=== PATIENT | male | born 1960 | race Caucasian/White ===

== ENCOUNTER 2021-01-28 07:25 | Day surgery (SDC) | payer BC ==
[2021-01-27 11:55] LABS: Absolute Lymphocytes (CBC) 2.2 K/uL (0.7-4.9); Basophils % 1.1 % (0-1.3); Hematocrit 46.3 % (39.6-49.0); Lymphocytes % 31.1 % (15.3-44.8); MPV 7.9 fL (7.6-11.3); Potassium 4.4 mmol/L (3.5-5.1); RBC Red Blood Cell Count 5.07 M/uL (4.33-5.43)
--- NOTE | 2021-01-27 12:04 | RAD REPORT ---
EXAM DESCRIPTION: RAD - Chest Pa And Lat (2 Views) - 01/27/2021 11:27 am CLINICAL HISTORY: preop, patient pending umbilical hernia repair COMPARISON: August 2012 TECHNIQUE: Frontal and lateral views of the chest were obtained. FINDINGS: The lungs are clear of an acute infiltrate, failure or volume overload finding. No suspici ous mass. Scarring in the mid right lung field has progressed since 2011. Interval change is minimal. No mass density identified. Heart size is normal and central vasculature is within normal limits. No pleural effusion or pneumothorax seen. No acute bony finding noted. No aortic abnormality. IMPRESSION: No acute cardiopulmonary process. Right midlung field scarring changes are very minimally progressive from 2011.
--- NOTE | 2021-01-27 12:13 | EKG ---
Test Date: 2021-01-27 Test Time: 10:27:25 Accounts Receivable Associate: TG MEASUREMENT RESULTS: Intervals: Rate: 55 OR: 230 QRSD: 94 QT: 440 QTc: 420 [place]: P: 31 OR: 230 QRS: 30 T: 28 INTERPRETIVE STATEMENTS: Sinus bradycardia with sinus arrhythmia with 1st degree AV block Otherwise normal ECG Compared to ECG 01/08/2016 10:13:44 First degree AV block now present Electronically Signed On 01-27-21 12:13:11 CDT by Rex Call
[2021-01-28] MEDS ORDERED: CEFAZOLIN/SWI 1gm 1 GM/10 ML SYR ONE (08:10)
[2021-01-28] MEDS ORDERED: Ringers Lactate 1,000 ML IV ONE ×2 (08:10→09:55)
[2021-01-28] MEDS ORDERED: FENTANYL CITR 100 MCG/2 ML ONE (08:26)
[2021-01-28] MEDS ORDERED: MIDAZOLAM HCL 2 MG/2 ML INJ ONE (08:26)
[2021-01-28] MEDS ORDERED: propofoL 200 MG/20 ML VIAL IV ONE (08:26)
[2021-01-28] MEDS ORDERED: dexAMETHasone 10 MG/ML VIAL ONE (08:26)
[2021-01-28] MEDS ORDERED: KETOROLAC 30 MG/ML INJ ONE (08:26)
[2021-01-28] MEDS ORDERED: ONDANSETRON 4 MG/2 ML VIAL ONE (08:27)
[2021-01-28] MEDS ORDERED: LIDOCAINE 2% MPF 5 ML VIAL ONE (08:27)
[2021-01-28] MEDS ORDERED: CELECOXIB 100 MG CAPSULE ONE (08:31)
[2021-01-28] MEDS ORDERED: ACETAMINOPHEN 500 MG TAB ONE (08:31)
[2021-01-28] MEDS ORDERED: ROCURONIUM 50 MG/5 ML VIAL IV ONE (09:32)
[2021-01-28] MEDS ORDERED: GLYCOPYRROLATE 0.2 MG/ML SYR ONE (09:48)
[2021-01-28] MEDS ORDERED: NEOSTIGMINE 1 MG/ML -5 ML ONE (09:49)
--- NOTE | 2021-01-28 10:04 | P.BOP ---
Preoperative diagnosis: incarcerated umbilical hernia Postoperative diagnosis: same Primary procedure: Open repair of incarcerated umbilical hernia [employer]working Supervisor: ELISEO WORKMAN ([employer]) Estimated blood loss: <10cc Specimen: hernia sac Findings: as above Anesthesia: General Complications: None Transferred to: Recovery Room Condition: Good
[2021-01-28 11:28] VITALS: BP 139/70; TEMP 96.4; O2SAT 100
--- NOTE | 2021-01-28 11:50 | OP ---
Date of Procedure: 01/28/2021 Surgeon: Raymond Dalton MD Forest Manager: Hanny Joshua. Preoperative Diagnosis: Incarcerated umbilical hernia. Postoperative Diagnosis: Incarcerated umbilical hernia. Procedure Performed: Open repair of incarcerated umbilical hernia. Estimated Blood Loss: Less than 10 mL. Specimen: Hernia sac. Anesthesia: General plus local. Indication: This is the case of a 60-year-old patient, who comes to us with above diagnosis. Fully explained the benefits, alternatives, and risks of repair may include mesh, which include, but not li mited to infection, bleeding, damage to adjacent structures, anesthesia complication, recurrence, RI, and even . He also understands this may not relieve any symptoms. He might need more than one surgical intervention. He understood, signed a consent. Procedure In Detail: The patient was brought to the operating room, placed in supine position. Anes thesia was done without complication. A time-out was called. Abdomen was prepped and draped in a st erile fashion. Local anesthesia was applied followed by sharp incision of the skin in the supraumbil ical region. The incision was carried down to the fascia. We noticed the hernia sac was opened. Th e incarcerated omentum was visualized. Some adhesions to the hernia sac were removed. The omentum w as reduced back into the abdominal cavity after fully inspected making sure there was no bleeding and also making sure that it is viable. Hernia sac was removed. Fascial edges were cleaned. We notice d we can close this and approximate this without significant tension by using #1 Prolene in a figure [id number] fashion multiple times. The defect was closed. The subcutaneous tissue was closed w ith 3-0 chromic and the skin in a subcuticular fashion with Steri-Strips on top. Sponge count and in strument counts were correct. The patient tolerated the procedure well. The patient was sent to [facility] in stable condition. HM/MODL Voice ID: [id number] Report ID: [id number]
--- NOTE | 2021-01-28 11:50 | DS ---
Diagnosis: Incarcerated umbilical hernia. Procedure Performed: Open repair of incarcerated umbilical hernia. Disposition: Home. Discharge Instructions: Activity as tolerated. No heavy lifting. Plan: Follow up in my office in 1 week. Call for appointment at [phone]. Keep area dry for 48 carlos rs, then may shower. He will keep Steri-Strip intact. He can also leave the area intact until he se es me again next week. MARISA/GEORGINA Voice ID: [id number] Report ID: [id number]
== END 2021-01-28 11:15 | disposition home or self-care (01) ==
LOC: OR 07:25
PROVIDERS: ATTEND Surgery
PROC: 0WQF0ZZ Repair Abdominal Wall, Open Approach (ICD-10-PCS; principal; 2021-01-28 09:30)
DX: K42.0 Umbilical hernia with obstruction, without gangrene (principal); Z20.822 Contact with and (suspected) exposure to COVID-19
CPT/HCPCS: 93005; 85025; 80048; 36415; 88302; 71046; 49587; U0003; J2704; J2250; J3010; J1100; J2710; J0690; J7120 ×2; J2405; 88304

== ENCOUNTER 2025-01-18 17:20 | Emergency (ER) | payer BC, OTHER ==
--- NOTE | 2025-01-18 18:55 | RAD REPORT ---
EXAMINATION: ONE VIEW CHEST XR CLINICAL INDICATION: COUGH TECHNIQUE: Frontal chest projection is submitted. Examination is limited by patient positioning and t echnique. COMPARISON: 01/27/2021 FINDINGS: Bilateral interstitial prominence seen, nonspecific but can indicate viral infection/bronchitis. No f ocal consolidation typical pneumonia seen. The heart is normal in size. No displaced fractures identified.
[2025-01-18 20:37] LABS: Absolute Basophils 0.1 K/uL (0-0.5); Absolute Eosinophils 0.1 K/uL (0-0.5); Absolute Lymphocytes (CBC) 1.4 K/uL (0.7-4.9); Absolute Neutrophil 12.2 K/uL (1.8-8.0); Basophils % 0.4 % (0-1.3); Eosinophils % 0.5 % (0-4.4); Hematocrit 44.7 % (39.6-49.0); Hemoglobin 15.5 g/dL (13.6-17.9); Lymphocytes % 9.2 % (15.3-44.8); MCH 31.3 pg (27.0-35.0); MCHC 34.7 g/dL (32.0-36.0); MCV 90.3 fL (80-100); MPV 7.5 fL (7.6-11.3); Monocytes % 6.8 % (3.3-12.3); Neutrophils % 83.1 % (41.7-73.7); Nucleated Red Blood Cells % 0.1 % (0-0); Platelets 333 thou/uL (152-406); RBC Red Blood Cell Count 4.95 M/uL (4.33-5.43); Red Cell Distribution Width 13.8 % (12.1-15.2)
[2025-01-18 21:00] LABS: Albumin 3.9 g/dL (3.4-5.0); Anion Gap 8.8 mEq/L (5.0-15.0); Bilirubin Direct 0.3 mg/dL (0-0.2); Bilirubin Total 1.3 mg/dL (0.2-1.0); Globulin 3.9 g/dL (2.3-3.5); Magnesium 2.1 mg/dL (1.6-2.4); Potassium 3.8 mEq/L (3.5-5.1); Protein, Total 7.8 g/dL (6.4-8.2); Troponin High Sensitivity 12.1 pg/mL (<58.9)
[2025-01-18] MEDS ORDERED: KETOROLAC 30 MG/ML INJ ONE (21:25)
[2025-01-18] MEDS ORDERED: ONDANSETRON 4 MG/2 ML VIAL ONE (21:25)
[2025-01-18] MEDS ORDERED: MORPHINE 4 MG/ML SYR ONE (21:25)
[2025-01-19] MEDS ORDERED: ONDANSETRON 4 MG/2 ML VIAL ONE (01:03)
[2025-01-19] MEDS ORDERED: MORPHINE 4 MG/ML SYR ONE (01:03)
--- NOTE | 2025-01-19 02:08 | RAD REPORT ---
EXAM DESCRIPTION: Chest For Pe Angio CLINICAL HISTORY: 64 years Male Chest pain;Cough COMPARISON: None TECHNIQUE: Images were obtained in axial, sagittal, and coronal planes. Intravenous contrast was administered. 3 -D MIP imaging was performed. This exam was performed according to our departmental dose-optimization program which includes use of Automated Exposure Control, adjustment of the mA and/ or kV according to patient size and/or use of iterative reconstruction technique. FINDINGS: No filling defects pulmonary arteries bilaterally. No aortic dissection or dilatation. No right heart strain. No pericardial or pleural effusions bilaterally. No adenopathy. Coronary artery calcification. No lung parenchymal infiltrates or nodules seen. No pneumothorax. Moderately distended gallbladder. No acute osseous abnormality. IMPRESSION: No evidence for pulmonary embolus. No aortic dissection or dilatation. No infiltrates seen. Electronically signed by: Monisha Olson MD 01/19/2025 01:17 AM CDT RP Due to temporary technical issues with the PACS/Feniks reporting system, reports are being noah d by the in-house radiologist without review as a courtesy to ensure prompt reporting the interpreting radiologist is fully responsible for the content of the report. Transcribed Date/Time: 01/19/2025 2:07 AM
[2025-01-19] MEDS ORDERED: HYDROMORPHONE HCL 0.5 MG/0.5 ML INJ ONE (03:41)
--- NOTE | 2025-01-19 04:10 | RAD REPORT ---
PROCEDURE: US ABDOMEN LIMITED INDICATION: Abdominal pain. COMPARISON: CT chest/abdomen/2024. TECHNIQUE: Grayscale, color and spectral Doppler ultrasound of the gallbladder was performed. FINDINGS: Visualized gallbladder is normally distended without stones or sludge. No gallbladder wall thickening or pericholecystic fluid. Patient is premedicated prior to exam. IMPRESSION: Negative gallbladder ultrasound. Electronically signed by: Odilia Armenta MD 01/19/2025 04:05 AM CDT RP Due to temporary technical issues with the PACS/[employer] reporting system, reports are being sign ed by the in-house radiologist without review as a courtesy to ensure prompt reporting the interpreting rad iologist is fully responsible for the content of the report. Transcribed Date/Time: 01/19/2025 4:10 AM
--- NOTE | 2025-01-19 05:34 | ER ---
Nurse's Notes [facility] Name: Fabrice Horn Age: 64 yrs Sex: Male : 1960 Arrival Date: 01/18/2025 Time: 17:20 Bed 16 Private MD: Diagnosis: Leukocytosis, elevated LFTs Presentation: 01/18 18:03 Chief complaint: Cough x 2 weeks, right lateral chest pain and pain with cough since hb this morning. Coronavirus screen: At this time, the client does not indicate any symptoms associated with coronavirus-19. Ebola Screen: No symptoms or risks identified at this time. Initial Sepsis Screen: Does the patient meet any 2 criteria? No. Patient's initial sepsis screen is negative. Does the patient have a suspected source of infection? No. Patient's initial sepsis screen is negative. Risk Assessment: Do you want to hurt yourself or someone else? Patient reports no desire to harm self or others. Onset of symptoms was January 18, 2025. 18:03 Method Of Arrival: Ambulatory 18:03 Acuity: ASHVIN 2 Triage Assessment: 01/19 05:51 Respiratory: Onset: The symptoms/episode began/occurred gradually. cp4 05:52 Respiratory: Reports cough that is non-productive, the patient has moderate shortness cp4 of breath. Historical: - Allergies: 01/18 18:04 No Known Allergies; hb - Home Meds: 18:04 aspirin 81 mg Oral tablet [Active]; atorvastatin 40 mg oral tablet [Active]; hb - PMHx: 18:04 None; hb - PSHx: 18:04 None; hb - Immunization history:: Adult Immunizations up to date. - Infectious Disease History:: Denies. - Social history:: Smoking status: Patient denies any tobacco usage or history of. Screenin:00 [facility] ED Fall Risk Assessment (Adult) History of falling in the last 3 months, cp4 including since admission No falls in past 3 months (0 pts) Confusion or Disorientation No (0 pts) Intoxicated or Sedated No (0 pts) Impaired Gait No (0 pts) Mobility Assist Device Used No (0 pt) Altered Elimination No (0 pt) Score/Fall Risk Level 0 - 2 = Low Risk Oriented to surroundings, Maintained a safe environment, Assessed \T\ reinforced patient's understanding of fall precautions, Hourly rounding (assess needs \T\ fall precautionary measures) done. Abuse screen: Denies threats or abuse. Denies injuries from another. Nutritional screening: No deficits noted. Tuberculosis screening: No symptoms or risk factors identified. Assessment: 21:00 General: Appears in no apparent distress. uncomfortable, Behavior is calm, cooperative, cp4 appropriate for age. 21:00 Pain: Complains of pain in chest Pain does not radiate. Pain currently is 9 out of 10 cp4 on a pain scale. Neuro: Level of Consciousness is awake, alert, obeys commands, Oriented to person, place, time, situation. Cardiovascular: Patient's skin is warm and dry. Rhythm is sinus rhythm. Respiratory: Airway is patent Respiratory effort is even, unlabored, Breath sounds are clear bilaterally. GI: No deficits noted. : No deficits noted. EENT: No deficits noted. Derm: No deficits noted. Musculoskeletal: No deficits noted. 23:00 Reassessment: Patient appears in no apparent distress at this time. Patient and/or cp4 family updated on plan of care and expected duration. Pain level reassessed. Patient is alert, oriented x 3, equal unlabored respirations, skin warm/dry/pink. 01/19 01:00 Reassessment: Patient appears in no apparent distress at this time. Patient and/or cp4 family updated on plan of care and expected duration. Pain level reassessed. Patient is alert, oriented x 3, equal unlabored respirations, skin warm/dry/pink. 03:45 Reassessment: Patient appears in no apparent distress at this time. Patient and/or cp4 family updated on plan of care and expected duration. Pain level reassessed. Patient is alert, oriented x 3, equal unlabored respirations, skin warm/dry/pink. 04:53 Reassessment: Patient appears in no apparent distress at this time. Patient and/or cp4 family updated on plan of care and expected duration. Pain level reassessed. Patient is alert, oriented x 3, equal unlabored respirations, skin warm/dry/pink. Vital Signs: 01/18 18:03 BP 156 / 85; Pulse 66; Resp 24; Temp 98.9(O); Pulse Ox 98% on R/A; Weight 99.79 kg; hb Height 5 ft. 8 in. ; Pain 9/10; 22:18 BP 145 / 84; Pulse 67; Resp 20; Pulse Ox 95% ; cp4 23:30 BP 136 / 81; Pulse 67; Resp 20; Pulse Ox 98% ; cp4 04 01:07 BP 155 / 86; Pulse 67; Resp 20; Pulse Ox 97% ; cp4 02:34 BP 156 / 84; Pulse 68; Resp 18; Pulse Ox 98% ; cp4 03:44 BP 151 / 081; Pulse 71; Resp 18; Pulse Ox 95% ; cp4 04:53 BP 131 / 71; Pulse 71; Resp 18; Pulse Ox 95% ; cp4 05:50 BP 142 / 83; Pulse 69; Resp 18; Pulse Ox 97% ; cp4 01/18 18:03 Body Mass Index 33.45 (99.79 kg, 172.72 cm) hb 01/18 18:03 Pain Scale: Adult hb ED Course: 01/18 17:21 Patient arrived in ED. im 18:04 Triage completed. hb 18:04 Arm band placed on. hb 18:11 EKG done, by ED staff, reviewed by Judd Atkinson MD. hb 18:19 Deshaun Zaidi FNP-C is PHCP. dr5 18:19 Judd Atkinson MD is Attending Physician. dr5 18:47 XRAY Chest (1 view) In Process Unspecified. EDMS 21:00 Bed in low position. Call light in reach. Side rails up X2. cp4 21:00 No provider procedures requiring assistance completed. cp4 21:20 Mirella Soria is Primary Nurse. cp4 23:18 First set of blood cultures drawn by me, Second set of blood cultures drawn by me. cp4 23:51 CT Chest For PE Angio In Process Unspecified. EDMS 01/19 02:26 US Abdomen Limited: RUQ Abdominal Pain In Process Unspecified. EDMS 04:47 Attending Physician role handed off by Judd Atkinson MD sp3 04:47 Jerrica Mak MD is Attending Physician. sp3 05:51 Provided Education on: liver function test. cp4 05:51 intact, bleeding controlled, No redness/swelling at site. Pressure dressing applied. cp4 Administered Medications: 01/18 21:29 Drug: morphine IVP or IV 4 mg IVP once over 4 mins Route: IVP; Infused Over: 4 mins; cp4 Site: left antecubital; 22:18 Follow up: Response: No adverse reaction; Pain is decreased cp4 21:29 Drug: Ondansetron IVP 4 mg IVP once; over 2 minutes Route: IVP; Site: left antecubital; cp4 22:18 Follow up: Response: No adverse reaction cp4 21:29 Drug: Ketorolac IVP 15 mg IVP once Route: IVP; Site: left antecubital; cp4 22:17 Follow up: Response: No adverse reaction; Pain is decreased cp4 01/19 01:06 Drug: morphine IVP or IV 4 mg IVP once over 4 mins Route: IVP; Infused Over: 4 mins; cp4 Site: left antecubital; 03:44 Follow up: Response: No adverse reaction; Pain is decreased cp4 01:06 Drug: Ondansetron IVP 4 mg IVP once; over 2 minutes Route: IVP; Site: left antecubital; cp4 03:44 Follow up: Response: No adverse reaction cp4 03:44 Drug: HYDROmorphone IVP 0.5 mg IVP once Route: IVP; Site: left antecubital; cp4 04:53 Follow up: Response: No adverse reaction; Pain is decreased cp4 Medication: 01/18 21:00 VIS not applicable for this client. cp4 Outcome: 01/19 05:33 Discharge ordered by . sp3 05:51 Discharged to home ambulatory, cp4 05:51 Condition: stable 05:51 Discharge instructions given to patient, family, Instructed on discharge instructions, follow up and referral plans. medication usage, Demonstrated understanding of instructions, follow-up care, medications, Prescriptions given X 2, 05:52 Patient left the ED. cp4 Signatures: Dispatcher [employer] EDMS Jessica Manrique RN RN Jerrica Kebede MD MD sp3 Valerie Duran Christina cp4 Deshaun Zaidi, BIBI-C ACCOUNTANT [employer]5
--- NOTE | 2025-01-19 05:34 | EDPHYS ---
Physician Documentation [facility] Name: Fabrice Horn Age: 64 yrs Sex: Male : 1960 Arrival Date: 01/18/2025 Time: 17:20 Bed 16 Private MD: ED Physician Jerrica Mak HPI: 01/19 02:18 This 64 yrs old Male presents to ER via Ambulatory with complaints of dr5 Shortness Of Breath, Chest Pain, Cough, Back Pain. 02:18 The patient has shortness of breath at rest. Onset: The symptoms/episode began/occurred dr5 2 week(s) ago. Patient is a 64-year-old male with no past medical history coming in with cough for the past 2 weeks, right upper quadrant abdominal pain, and right lower quadrant abdominal pain. Patient states that the pain is worse when he takes a deep breath in. . Historical: - Allergies: 01/18 18:04 No Known Allergies; hb - Home Meds: 18:04 aspirin 81 mg Oral tablet [Active]; atorvastatin 40 mg oral tablet [Active]; hb - PMHx: 18:04 None; hb - PSHx: 18:04 None; hb - Immunization history:: Adult Immunizations up to date. - Infectious Disease History:: Denies. - Social history:: Smoking status: Patient denies any tobacco usage or history of. ROS: 01/19 02:18 Constitutional: as per hpi dr5 Exam: 02:18 Constitutional: This is a well developed, well nourished patient who is awake, alert, dr5 and in no acute distress. Head/Face: Normocephalic, atraumatic. Eyes: Pupils equal round and reactive to light, extra-ocular motions intact. Lids and lashes normal. Conjunctiva and sclera are non-icteric and not injected. Cornea within normal limits. Periorbital areas with no swelling, redness, or edema. Neck: Trachea midline, no thyromegaly or masses palpated, and no cervical lymphadenopathy. Supple, full range of motion without nuchal rigidity, or vertebral point tenderness. No Meningismus. Chest/axilla: Normal chest wall appearance and motion. Nontender with no deformity. No lesions are appreciated. Cardiovascular: Regular rate and rhythm with a normal S1 and S2. Normal PMI, no JVD. No pulse deficits. Respiratory: Lungs have equal breath sounds bilaterally, clear to auscultation. No rales, rhonchi or wheezes noted. No increased work of breathing, no retractions or nasal flaring. Back: No spinal tenderness. No costovertebral tenderness. Full range of motion. Skin: Warm, dry with normal turgor. Normal color with no rashes, no lesions, and no evidence of cellulitis. 02:18 Abdomen/GI: Inspection: abdomen appears normal, Bowel sounds: normal, Palpation: abdomen is soft and non-tender, in all quadrants, nontender, in the right upper quadrant, 02:18 Neuro: Awake and alert, GCS 15, oriented to person, place, time, and situation. dr5 Cranial nerves II-XII grossly intact. Motor strength 5/5 in all extremities. Sensory grossly intact. Cerebellar exam normal. Normal gait. Vital Signs: 01/18 18:03 BP 156 / 85; Pulse 66; Resp 24; Temp 98.9(O); Pulse Ox 98% on R/A; Weight 99.79 kg; hb Height 5 ft. 8 in. ; Pain 9/10; 22:18 BP 145 / 84; Pulse 67; Resp 20; Pulse Ox 95% ; cp4 23:30 BP 136 / 81; Pulse 67; Resp 20; Pulse Ox 98% ; cp4 04 01:07 BP 155 / 86; Pulse 67; Resp 20; Pulse Ox 97% ; cp4 02:34 BP 156 / 84; Pulse 68; Resp 18; Pulse Ox 98% ; cp4 03:44 BP 151 / 081; Pulse 71; Resp 18; Pulse Ox 95% ; cp4 04:53 BP 131 / 71; Pulse 71; Resp 18; Pulse Ox 95% ; cp4 05:50 BP 142 / 83; Pulse 69; Resp 18; Pulse Ox 97% ; cp4 01/18 18:03 Body Mass Index 33.45 (99.79 kg, 172.72 cm) hb 01/18 18:03 Pain Scale: Adult hb MDM: 01/18 18:19 Medical Screening Exam initiated dr5 01/19 02:18 Differential diagnosis: Anemia PE, Pneumonia, Cholecystitis, Cholelithiasis, NSTEMI, dr5 PR, Asthma, Bronchitis. Data reviewed: vital signs, nurses notes. I considered the following discharge prescriptions or medication management in the emergency department Medications were administered in the Emergency Department. See MAR. Care significantly affected by the following Social Determinants of Health: Poor access to healthcare and/or lack of insurance, Poor access to transportation, Problems related to employment. Counseling: I had a detailed discussion with the patient and/or guardian regarding the historical points, exam findings, and any diagnostic results supporting the discharge/admit diagnosis, the presence of at least one elevated blood pressure reading (>120/80) during this emergency department visit, lab results. 03:27 Transition of care: After a detail discussion of the patient's case, care is dr5 transferred to Jerrica Mak MD. 05:29 ED course: Patient taken over from Dr. Atkinson and Deshaun. 64-year-old male who sp3 presents with right-sided chest and upper quadrant abdominal pain. Patient received CT dissection protocol as well as right upper quadrant ultrasound which were both negative. Patient's LFTs are elevated slightly. Lipase is negative. Patient is improved just with treatment here today. WBC count slightly elevated as well. Will discharge patient home on prophylactic Levaquin and tramadol with follow-up to PCP and GI for evaluation of elevated LFTs.. 01/18 18:09 Order name: Basic Metabolic Panel; Complete Time: 23:48 [facility] 01/18 18:09 Order name: CBC with Diff; Complete Time: 23:48 [facility] 01/18 18:09 Order name: D-Dimer; Complete Time: 23:48 01/18 18:09 Order name: LFT's; Complete Time: 23:48 [facility] 01/18 18:09 Order name: Magnesium; Complete Time: 23:48 [facility] 01/18 18:09 Order name: NT PRO-BNP; Complete Time: 23:48 [facility] 01/18 18:09 Order name: Troponin HS; Complete Time: 23:48 [facility] 01/18 22:55 Order name: Blood Culture Adult (2) dr5 01/18 22:55 Order name: Lactate w/ 2H reflex if indic.; Complete Time: 00:41 dr5 01/19 04:54 Order name: Lipase; Complete Time: 05:24 sp3 01/18 18:09 Order name: XRAY Chest (1 view); Complete Time: 19:01 01/18 22:53 Order name: CT Chest For PE Angio dr5 01/19 01:38 Order name: US Abdomen Limited: RUQ Abdominal Pain dr5 01/18 18:09 Order name: Cardiac monitoring; Complete Time: 01/18 18:09 Order name: EKG - Nurse/Tech; Complete Time: 01/18 18:09 Order name: IV Saline Lock; Complete Time: 01/18 18:09 Order name: Labs collected and sent; Complete Time: 01/18 18:09 Order name: O2 Per Protocol; Complete Time: 01/18 18: Order name: O2 Sat Monitoring; Complete Time: EC/11 18:09 Rate is 61 beats/min. Rhythm is regular. QRS [place] is Normal. LA interval is normal at dr5 210 msec. QRS interval is normal at 90 msec. QT interval is normal at 428 msec. Administered Medications: 21:29 Drug: morphine IVP or IV 4 mg IVP once over 4 mins Route: IVP; Infused Over: 4 mins; cp4 Site: left antecubital; 22:18 Follow up: Response: No adverse reaction; Pain is decreased cp4 21:29 Drug: Ondansetron IVP 4 mg IVP once; over 2 minutes Route: IVP; Site: left antecubital; cp4 22:18 Follow up: Response: No adverse reaction cp4 21:29 Drug: Ketorolac IVP 15 mg IVP once Route: IVP; Site: left antecubital; cp4 22:17 Follow up: Response: No adverse reaction; Pain is decreased cp4 01/19 01:06 Drug: morphine IVP or IV 4 mg IVP once over 4 mins Route: IVP; Infused Over: 4 mins; cp4 Site: left antecubital; 03:44 Follow up: Response: No adverse reaction; Pain is decreased cp4 01:06 Drug: Ondansetron IVP 4 mg IVP once; over 2 minutes Route: IVP; Site: left antecubital; cp4 03:44 Follow up: Response: No adverse reaction cp4 03:44 Drug: HYDROmorphone IVP 0.5 mg IVP once Route: IVP; Site: left antecubital; cp4 04:53 Follow up: Response: No adverse reaction; Pain is decreased cp4 Disposition: 05:32 Co-signature as Attending Physician, Jerrica Mak MD. sp3 Disposition Summary: 01/19/25 05:33 Discharge Ordered Notes: Location: Home sp3 Condition: Stable sp3 Diagnosis - Leukocytosis, elevated LFTs sp3 Followup: sp3 - With: Private Physician - When: Upon discharge from the Emergency Department - Reason: Continuance of care Discharge Instructions: - Discharge Summary Sheet sp3 - Liver Function Tests sp3 Forms: - Medication Reconciliation Form sp3 - Antibiotic Education sp3 - Prescription Opioid Use sp3 - Patient Portal Instructions sp3 - Leadership Thank You Letter sp3 Prescriptions: - Tramadol 50 mg Oral Tablet - take 1 tablet ORAL route every 8 hours as needed; 12 tablet; Refills: 0, sp3 Product Selection Permitted - levofloxacin 500 mg Oral tablet - take 1 tablet ORAL route once daily for 7 days; 7 tablet; Refills: 0, Product sp3 Selection Permitted Signatures: Dispatcher [employer] EDMS Jessica Manrique RN RN Jerrica Mak MD MD sp3 Kal Madera MD MD [id number] Mirella Soria 4 Deshaun Zaidi, FOUNTAIN HELPER-C FOUNTAIN HELPER-Cdr5 Corrections: (The following items were deleted from the chart) 01/18 18:10 18:10 BASIC METABOLIC PANEL+C.LAB.BRZ ordered. EDMS EDMS 18:10 18:10 CBC+H.LAB.BRZ ordered. EDMS EDMS 18:10 18:10 D-DIMER+COAG.LAB.BRZ ordered. EDMS EDMS 18:10 18:10 HEPATIC FUNCTION+C.LAB.BRZ ordered. EDMS EDMS 18:10 18:10 MAGNESIUM+C.LAB.BRZ ordered. EDMS EDMS 18:10 18:10 PROBNP+C.LAB.BRZ ordered. EDMS EDMS 18:10 18:10 Troponin High Sensitivity+C.LAB.BRZ ordered. EDMS EDMS 18:10 18:10 Chest Single View+RAD.RAD.BRZ ordered. EDMS EDMS 01/19 03:55 03:24 Abdomen Pelvis W Con+CT.RAD.BRZ ordered. EDMS EDMS 04:54 04:54 LIPASE+C.LAB.BRZ ordered. EDMS EDMS
[2025-01-19 06:32] VITALS: TEMP 98.9
[2025-01-19 06:43] VITALS: BP 142/83; O2SAT 97
--- NOTE | 2025-01-21 10:55 | EKG ---
Test Date: 2025-01-18 Test Time: 18:09:47 Prize Fighter: HB MEASUREMENT RESULTS: Intervals: Rate: 61 IN: 210 QRSD: 90 QT: 428 QTc: 430 [place]: P: 28 IN: 210 QRS: 7 T: 17 INTERPRETIVE STATEMENTS: Sinus rhythm with 1st degree AV block Otherwise normal ECG Compared to ECG 01/27/2021 10:27:25 Sinus bradycardia no longer present Sinus arrhythmia no longer present Electronically Signed On 01-21-25 10:50:19 CDT by Blake Box
== END 2025-01-19 05:52 | disposition home or self-care (01) ==
LOC: ER 17:20
DX: D72.829 Elevated white blood cell count, unspecified (principal); R79.89 Other specified abnormal findings of blood chemistry; R10.11 Right upper quadrant pain; R07.9 Chest pain, unspecified; R05.9 Cough, unspecified
CPT/HCPCS: 93005; 87040 ×2; 85025; 80048; 36415; 83735; 85379; 80076; 83605; 84484; 83690; 83880; 71275; 71045; 76705; 96375; 96374; 99284; Q9967; J1171; J2405 ×2